=== PATIENT | female | born 1995 | race American Indian/Alaskan Native ===

== ENCOUNTER 2017-08-17 09:50 | Emergency (ER) | payer OTHER ==
[2017-08-17 11:22] VITALS: BP 106/64
[2017-08-17] MEDS ORDERED: TETRACAINE 0.5% OU ONE (15:39)
--- NOTE | 2017-08-17 16:24 | Emergency Department Report ---
[facility] Chief Complaint: Eye Problems Stated Complaint: RIGHT EYE PAIN Time Seen by Provider: 08/17/17 14:10 Duration: 1 Day Side: Right Severity: moderate Symptoms: Yes Eye Itching, Yes Eye Redness, Yes Eye Pain, Yes Contact Lens Use, No Mucous Drainage, No Purulent Drainage, No Blurred Vision, No Preceding URI, No H/O Allergic Rhinitis, No Trauma, No Fever, No Headache Other History: This is a 22 y.o. female presents with redness and irritation to right eye that started yesterday. Patient states her right eye feel like something is inside of it and it continues to drain clear discharge. She took contacts out and cleaned them and placed them back in without improvement. He eye started to drain worse. The right eye is sensitive to light. Denies visual change, pain, swelling to right eye, and recent URI. ED Review of Systems ROS: Stated complaint: RIGHT EYE PAIN Other details as noted in HPI Constitutional: denies: chills, fever Eyes: eye discharge (right eye, clear discharge, red). denies: eye pain, vision change ENT: denies: ear pain, throat pain Respiratory: denies: cough, shortness of breath, wheezing Cardiovascular: denies: chest pain, palpitations Gastrointestinal: denies: abdominal pain, nausea, diarrhea Neurological: denies: headache, weakness, paresthesias ED Past Medical Hx - Past Medical History Previous Medical History?: No - Surgical History Additional Surgical History: D & C - Social History Smoking Status: Current Every Day Smoker Substance Use Type: Alcohol - Medications Home Medications: Home Medications Medication Instructions Recorded Confirmed Last Taken Type Naproxen [Naprosyn] 500 mg PO BID PRN #20 tablet 05/31/17 Unknown Rx methOCARBAMOL [Robaxin TAB] 500 mg PO BID #20 tab 05/31/17 Unknown Rx Ciprofloxacin 0.3% (Nf) 2.5 ml OP BID 5 Days #1 bottle 08/17/17 Unknown Rx [Ciprofloxacin OPTH] [facility] Exam - Exam General: Vital signs noted. No distress. Alert and acting appropriately. Eye Exam: Right Injection, Right Mucous Discharge (thin, clear), Right Fluorescein Uptake, Right Photophobia, Both EOMI, Neither Chemosis, Neither Abnormal Pupil, Neither Eye Foreign Body, Neither Lid Foreign Body, Neither Purulent Discharge, Neither Fluorescein Uptake (slit lamp), Neither Cell/Flare ( slit lamp), Neither Corneal Edema HEENT: No Nasal Congestion, No Pharyngeal Erythema Remainder of HEENT: Normal Lungs: Yes Clear Lung Sounds, Yes Good Air Exchange, No Wheezes, No Stridor, No Cough, No Nasal Flaring, No Retractions, No Use of Accessory Muscles ED Course Vital Signs 08/17/17 11:19 Temperature 98.9 F Pulse Rate 86 Respiratory 18 Rate Blood Pressure 106/64 O2 Sat by Pulse 98 Oximetry ED Medical Decision Making - Medical Decision Making This is a 22 y.o. female presents with right eye redness and irritation for 1 day. Patient wears contacts, removed to clean and symptoms got worse yesterday. There is redness, clear discharge, and photophobia. Fluorescein stain negative corneal abrasion. Susceptible of conjunctivitis of right eye. Discharged home with cipro gtts. Instructed to f/u with ophthalmology in 24-48 hours or sooner if symptoms are worse. Critical care attestation.: If time is entered above; I have spent that time in minutes in the direct care of this critically ill patient, excluding procedure time. ED Disposition Clinical Impression: Conjunctivitis Qualifiers: Conjunctivitis type: acute Acute conjunctivitis type: bacterial Laterality: right Qualified Code(s): H10.31 - Unspecified acute conjunctivitis, right eye Disposition: DC-01 TO HOME OR SELFCARE Is pt being admited?: No Does the pt Need Aspirin: No Condition: Stable Instructions: Conjunctivitis (ED) Additional Instructions: Through contacts out. Wash hands frequently. Take medication as prescribed. Follow up with Ophthalmology in 24-48 hours. Return to ER if visual change and pain. Prescriptions: Ciprofloxacin 0.3% (Nf) [Ciprofloxacin OPTH] 2.5 ml OP BID 5 Days #1 bottle Referrals: MALLORY MARIE MD [Staff Physician] - 3-5 Days WALKER BILLINGS MD [Staff Physician] - 3-5 Days Time of Disposition: 16:58 Print Language: PORTUGUESE
[2017-08-17] MEDS ORDERED: FUL-GLO OP ONE (16:39)
== END 2017-08-17 17:56 | disposition home or self-care (01) ==
LOC: ED 09:50
DX: H10.31 Unspecified acute conjunctivitis, right eye (principal); F17.200 Nicotine dependence, unspecified, uncomplicated; Z88.5 Allergy status to narcotic agent
CPT/HCPCS: 99283